=== PATIENT | male | born 1970 | race Hispanic/Latino ===

== ENCOUNTER 2020-04-29 00:34 | Emergency (ER) | payer SELFPAY ==
[2020-04-29] MEDS ORDERED: ACETAMINOPHEN 500 MG TAB ONE (01:26)
--- NOTE | 2020-04-29 02:47 | ER ---
Nurse's Notes [facility] Name: Leonor Zambrano Age: 50 yrs Sex: Male : 1970 Arrival Date: 04/29/2020 Time: 00:44 Bed 4 Private MD: Diagnosis: Headache Presentation: 04/29 01:00 Chief complaint: Patient states: i have frontal headache since 0700 tonight. i took mg2 motrin \T\ 11 pm but nor relief,. Coronavirus screen: Patient denies a cough. Patient denies shortness of breath or difficulty breathing. Patient denies measured and/or subjective temperature greater than 100.4F prior to today's visit. Patient denies travel on a cruise ship or to a country the [facility] currently lists as an affected area. Patient denies contact with known and/or suspected case of COVID-19. Patient instructed to continue to wear a mask when interacting with others. Patient moved to private room, placed in contact and droplet isolation with eye protection until further assessment. Ebola Screen: No symptoms or risks identified at this time. Initial Sepsis Screen: Does the patient meet any 2 criteria? No. Patient's initial sepsis screen is negative. Does the patient have a suspected source of infection? No. Patient's initial sepsis screen is negative. Risk Assessment: Do you want to hurt yourself or someone else? Patient reports no desire to harm self or others. Onset of symptoms was April 28, 2020. 01:00 Method Of Arrival: Ambulatory mg2 01:00 Acuity: RAKEL 4 mg2 Triage Assessment: 01:03 General: Appears in no apparent distress. comfortable, Behavior is calm, cooperative. mg2 Pain: Complains of pain in head. Pain: Pain currently is 6 out of 10 on a pain scale. Pain began gradually, 4 hours ago. Also complains of no other associated symptoms. Neuro: Level of Consciousness is awake, alert, obeys commands, Oriented to person, place, time, situation. 01:35 Headache History: The patient has had previous headaches. mg2 Historical: - Allergies: 01:02 No Known Allergies; mg2 - Home Meds: 01:02 None [Active]; mg2 - PMHx: 01:02 None; mg2 - Immunization history:: Flu vaccine status is unknown. - Social history:: Smoking status: Patient denies any tobacco usage or history of. Patient/guardian denies using alcohol, street drugs, IV drugs. Screenin:04 Abuse screen: Denies threats or abuse. Denies injuries from another. Nutritional mg2 screening: No deficits noted. Tuberculosis screening: No symptoms or risk factors identified. Fall Risk None identified. Assessment: 01:03 General: see triage assessment. mg2 Vital Signs: 01:00 BP 142 / 87; Pulse 80; Resp 18; Temp 98.7; Pulse Ox 100% on R/A; Weight 85.73 kg; mg2 Height 5 ft. 8 in. (172.72 cm); 02:58 BP 122 / 77; Pulse 78; Resp 18; Temp 98.5(O); Pulse Ox 100% on R/A; mg2 01:00 Body Mass Index 28.74 (85.73 kg, 172.72 cm) mg2 Kostas Coma Score: 02:45 Eye Response: spontaneous(4). Verbal Response: oriented(5). Motor Response: obeys 7 commands(6). Total: 15. ED Course: 00:44 Patient arrived in ED. cf2 00:53 Christopher Patel MD is Attending Physician. 7 00:54 Sylvain Feliz, AI is Primary Nurse. mg2 01:02 Triage completed. mg2 01:03 Arm band placed on. mg2 01:04 No provider procedures requiring assistance completed. mg2 01:35 Patient has correct armband on for positive identification. mg2 01:43 CT Head Brain wo Cont In Process Unspecified. EDMS 02:58 Patient did not have IV access during this emergency room visit. mg2 03:14 Primary Nurse role handed off by Sylvain Feliz RN lp1 Administered Medications: 01:20 Drug: Tylenol 1000 mg Route: PO; mg2 02:36 Follow up: Response: No adverse reaction mg2 Outcome: 02:47 Discharge ordered by . mh7 02:58 Discharged to home ambulatory. mg2 02:58 Condition: good 02:58 Discharge instructions given to patient, Instructed on discharge instructions, follow up and referral plans. Demonstrated understanding of instructions, follow-up care. 02:59 Patient left the ED. mg2 03:21 Patient left the ED. lp1 Signatures: Dispatcher [employer] EDVT Trixie Isaac RN RN lp1 Sylvain Feliz RN RN [facility] [place] Tang Gore cf2 Christopher Patel, MD mh7
--- NOTE | 2020-04-29 02:47 | EDPHYS ---
Physician Documentation [facility] Name: Leonor Zambrano Age: 50 yrs Sex: Male : 1970 Arrival Date: 04/29/2020 Time: 00:44 Bed 4 Private MD: ED Physician Christopher Patel HPI: 04/29 01:10 This 50 yrs old Male presents to ER via Ambulatory with complaints of mh7 Headache, TOOK 200MG OF UNKNOWN PILLS. 01:10 The patient complains of pain to the forehead. The patient describes the headache as mh7 intermittent, waxing and waning. Onset: The symptoms/episode began/occurred today. Associated signs and symptoms: Pertinent negatives: altered mental status, dizziness, fever, malaise, nausea, neck stiffness, paresthesias, Photophobia rash, sinus congestion, sinus tenderness, vision changes, vision loss, vomiting, weakness, vertigo. Severity of symptoms: At its worst the pain was moderate, earlier today, in the emergency department the pain has improved, moderately. Headache History: Denies prior headaches. The symptoms are alleviated by over the counter pain medication, OTC NSAIDS, the symptoms are aggravated by nothing. Historical: - Allergies: 01:02 No Known Allergies; mg2 - Home Meds: 01:02 None [Active]; mg2 - PMHx: 01:02 None; mg2 - Immunization history:: Flu vaccine status is unknown. - Social history:: Smoking status: Patient denies any tobacco usage or history of. Patient/guardian denies using alcohol, street drugs, IV drugs. ROS: 01:10 Constitutional: Negative for fever, chills, and weight loss, Eyes: Negative for injury, mh7 pain, redness, and discharge, ENT: Negative for injury, pain, and discharge, Neck: Negative for injury, pain, and swelling, Cardiovascular: Negative for chest pain, palpitations, and edema, Respiratory: Negative for shortness of breath, cough, wheezing, and pleuritic chest pain, Abdomen/GI: Negative for abdominal pain, nausea, vomiting, diarrhea, and constipation, Back: Negative for injury and pain, : Negative for injury, bleeding, discharge, and swelling, MS/Extremity: Negative for injury and deformity, Skin: Negative for injury, rash, and discoloration, Psych: Negative for depression, anxiety, suicide ideation, homicidal ideation, and hallucinations, Allergy/Immunology: Negative for hives, rash, and allergies, Endocrine: Negative for neck swelling, polydipsia, polyuria, polyphagia, and marked weight changes, Hematologic/Lymphatic: Negative for swollen nodes, abnormal bleeding, and unusual bruising. Exam: 01:10 Constitutional: This is a well developed, well nourished patient who is awake, alert, mh7 and in no acute distress. 01:10 Eyes: Pupils equal round and reactive to light, extra-ocular motions intact. Lids and lashes normal. Conjunctiva and sclera are non-icteric and not injected. Cornea within normal limits. Periorbital areas with no swelling, redness, or edema. ENT: Nares patent. No nasal discharge, no septal abnormalities noted. Tympanic membranes are normal and external auditory canals are clear. Oropharynx with no redness, swelling, or masses, exudates, or evidence of obstruction, uvula midline. Mucous membranes moist. Neck: Trachea midline, no thyromegaly or masses palpated, and no cervical lymphadenopathy. Supple, full range of motion without nuchal rigidity, or vertebral point tenderness. No Meningismus. Chest/axilla: Normal chest wall appearance and motion. Nontender with no deformity. No lesions are appreciated. Cardiovascular: Regular rate and rhythm with a normal S1 and S2. No gallops, murmurs, or rubs. Normal PMI, no JVD. No pulse deficits. Respiratory: Lungs have equal breath sounds bilaterally, clear to auscultation and percussion. No rales, rhonchi or wheezes noted. No increased work of breathing, no retractions or nasal flaring. Abdomen/GI: Soft, non-tender, with normal bowel sounds. No distension or tympany. No guarding or rebound. No evidence of tenderness throughout. Back: No spinal tenderness. No costovertebral tenderness. Full range of motion. Skin: Warm, dry with normal turgor. Normal color with no rashes, no lesions, and no evidence of cellulitis. MS/ Extremity: Pulses equal, no cyanosis. Neurovascular intact. Full, normal range of motion. Neuro: Awake and alert, GCS 15, oriented to person, place, time, and situation. Cranial nerves II-XII grossly intact. Motor strength 5/5 in all extremities. Sensory grossly intact. Cerebellar exam normal. Normal gait. Psych: Awake, alert, with orientation to person, place and time. Behavior, mood, and affect are within normal limits. 01:10 Head/face: 02:48 Head/face: Noted is tenderness, that is moderate, of the forehead. [facility] Vital Signs: 01:00 BP 142 / 87; Pulse 80; Resp 18; Temp 98.7; Pulse Ox 100% on R/A; Weight 85.73 kg; mg2 Height 5 ft. 8 in. (172.72 cm); 02:58 BP 122 / 77; Pulse 78; Resp 18; Temp 98.5(O); Pulse Ox 100% on R/A; mg2 01:00 Body Mass Index 28.74 (85.73 kg, 172.72 cm) mg2 Kostas Coma Score: 02:45 Eye Response: spontaneous(4). Verbal Response: oriented(5). Motor Response: obeys [facility] commands(6). Total: 15. MDM: 01:14 Patient medically screened. [facility] 02:45 Differential diagnosis: cluster headache, migraine, sinusitis, tension headache, 7 vasomotor headache. Data reviewed: vital signs, nurses notes, lab test result(s), Flu: radiologic studies, CT scan. Data interpreted: Pulse oximetry: on room air is 100 %. Interpretation: normal. Counseling: I had a detailed discussion with the patient and/or guardian regarding: the historical points, exam findings, and any diagnostic results supporting the discharge/admit diagnosis, the presence of at least one elevated blood pressure reading (>120/80) during this emergency department visit, lab results, radiology results, the need for outpatient follow up, to return to the emergency department if symptoms worsen or persist or if there are any questions or concerns that arise at home. Response to treatment: the patient's symptoms have resolved after treatment, the patient's blood pressure is in an acceptable range, mental status has returned to baseline, the patient no longer shows bradycardia, the patient is not short of breath, the patient is not tachycardic, the patient's pain is gone, the patient's temperature has normalized. 04/29 01:10 Order name: Influenza Screen (a \T\ B) [facility] 04/29 01:10 Order name: Rapid Strep [facility] 04/29 01:10 Order name: CT Head Brain wo Cont mh7 Administered Medications: 01:20 Drug: Tylenol 1000 mg Route: PO; mg2 02:36 Follow up: Response: No adverse reaction mg2 Disposition: 04/29/20 02:47 Discharged to Home. Impression: Headache. - Condition is Stable. - Discharge Instructions: General Headache Without Cause, [id number]. - Work release form, Medication Reconciliation Form, Thank You Letter, Antibiotic Education, Prescription Opioid Use form. - Follow up: Private Physician; When: 1 - 2 days; Reason: Worsening of condition, Recheck today's complaints, Re-evaluation by your physician. - Problem is new. - Symptoms are resolved. Signatures: Dispatcher [employer] EDMS Trixie Isaac RN RN lp1 Sylvain Feliz RN RN mg2 Christopher Patel MD MD 7 Corrections: (The following items were deleted from the chart) 02:59 02:47 04/29/2020 02:47 Discharged to Home. Impression: Headache. Condition is Stable. mg2 Forms are Medication Reconciliation Form, Thank You Letter, Antibiotic Education, Prescription Opioid Use. Follow up: Private Physician; When: 1 - 2 days; Reason: Worsening of condition, Recheck today's complaints, Re-evaluation by your physician. Problem is new. Symptoms are resolved. mh7 03:21 02:59 04/29/2020 02:47 Discharged to Home. Impression: Headache. Condition is Stable. lp1 Discharge Instructions: General Headache Without Cause, [id number]. Forms are Medication Reconciliation Form, Thank You Letter, Antibiotic Education, Prescription Opioid Use, Work release form. Follow up: Private Physician; When: 1 - 2 days; Reason: Worsening of condition, Recheck today's complaints, Re-evaluation by your physician. Problem is new. Symptoms are resolved. mg2
[2020-04-30 00:32] VITALS: O2SAT 100
[2020-04-30 00:34] VITALS: BP 122/77; TEMP 98.5
--- NOTE | 2020-04-30 13:02 | RAD REPORT ---
EXAM DESCRIPTION: CT - Head Brain Wo Cont - 04/29/2020 3:06 am CLINICAL HISTORY: HEADACHE COMPARISON: None available TECHNIQUE: Axial CT of the head obtained from the skull apex to the skull base without contrast. FINDINGS: No acute intracranial hemorrhage identified. No mass, mass effect, shift of the midline, a bnormal extra-axial fluid collection or CT evidence of acute ischemic change identified. The ventricu lar system is unremarkable. No acute abnormalities of the supratentorial white matter, basal gangli a, cerebellum, or brainstem. The visualized paranasal sinuses and the mastoids are relatively well aerated. No skull fracture id entified. Visualized orbits and globes are unremarkable. IMPRESSION: 1. No acute intracranial abnormality identified. This exam was performed according to our departmental dose-optimization program, which includes autom ated exposure control, adjustment of the mA and/or kV according to patient size and/or use of iterati ve reconstruction technique. Electronically signed by: Kevin Brennan 04/29/2020 1:49 AM CDT Due to temporary technical issues with the PACS/Fluency reporting system, reports are being signed by the in house radiologist without review as a courtesy to ensure prompt reporting. The interpreting r adiologist is fully responsible for the content of the report.
== END 2020-04-29 03:21 | disposition home or self-care (01) ==
LOC: ER 00:34
DX: R51 Headache (principal)
CPT/HCPCS: 70450; 87070; 87081; 87804; 99283